=== PATIENT | male | born 1970 | race African-American/Black ===

== ENCOUNTER 2016-12-18 23:16 | Emergency (ER) | payer OTHER ==
[2016-12-19] MEDS ORDERED: SODIUM CHLORIDE 0.9% 1000 ML INFUS.BAG IV ONE (00:26)
[2016-12-19] MEDS ORDERED: KETOROLAC TROMETHAMINE 30 MG/1 ML VIAL IVPUSH ONE (00:26)
[2016-12-19] MEDS ORDERED: ONDANSETRON 4 MG/2 ML VIAL IVPUSH ONE (00:26)
[2016-12-19] MEDS ORDERED: FAMOTIDINE 20 MG/50 ML IVPB 50 ML IVPB ONE ×2 (00:26→00:41)
--- NOTE | 2016-12-19 00:32 | PDOC ---
History of Present Illness <Rossy Castelan - Last Filed: 12/19/16 06:40> - General History Source: Patient Exam Limitations: No Limitations - History of Present Illness Initial Comments: 12/19/16 00:23 Patient is a 46 year old with h/o cholecystectomy c/o generalized abd pain x 10 hours, states nausea, vomiting and diarrhea for same duration. Pain is 10/10 continuos, cramping, no alleviating, no aggravating factors. He is intolerant of solids and liquids,. Denies food contact, however had similar symptoms last year July which he thinks symptoms are the same as when he had food poisoning. PMDL Dr. Mcclellan PMHX; as above PSOCHX: neg etoh, drug, cig PFamHX: noncontributory ALL: PCN hives GENERAL/CONSTITUTIONAL: [No fever or chills. No weakness. No weight change.] HEAD, EYES, EARS, NOSE AND THROAT: [No change in vision. No ear pain or discharge. No sore throat.] CARDIOVASCULAR: [No chest pain or shortness of breath.] RESPIRATORY: [No cough, wheezing, or hemoptysis.] GASTROINTESTINAL: [No nausea, vomiting, diarrhea or constipation. No rectal bleeding.] GENITOURINARY: [No dysuria, frequency, or change in urination.] MUSCULOSKELETAL: [No joint or muscle swelling or pain. No neck or back pain.] SKIN AND BREASTS: [No rash or easy bruising.] NEUROLOGIC: [No headache, vertigo, loss of consciousness, or loss of sensation.] PSYCHIATRIC: [No depression or anxiety.] ENDOCRINE: [No increased thirst. No abnormal weight change.] HEMATOLOGIC/LYMPHATIC: [No anemia, easy bleeding, or history of blood clots.] ALLERGIC/IMMUNOLOGIC: [No hives or skin allergy. No latex allergy.] GENERAL: [The patient is awake, alert, and fully oriented, in moderate distress. ] HEAD: [Normal with no signs of trauma.] EYES: [Pupils equal, round and reactive to light, extraocular movements intact, sclera anicteric, conjunctiva clear.] ENT: [Ears normal, nares patent, oropharynx clear without exudates. Moist mucous membranes.] NECK: [Normal range of motion, supple without lymphadenopathy, JVD, or masses.] LUNGS: [Breath sounds equal, clear to auscultation bilaterally. No wheezes, and no crackles.] HEART: [Regular rate and rhythm, normal S1 and S2 without murmur, rub.] ABDOMEN: [Soft, (+) generalized tenderness, normoactive bowel sounds. No guarding, no rebound. No masses.] EXTREMITIES: [Normal range of motion, no edema. No clubbing or cyanosis. No cords, erythema, or tenderness.] NEUROLOGICAL: [Cranial nerves II through XII grossly intact. Normal speech, normal gait.] PSYCH: [Normal mood, normal affect.] SKIN: [Warm, Dry, normal turgor, no rashes or lesions noted.] <Kathryn Singh - Last Filed: 12/19/16 08:19> - General Stated Complaint: ABDOMINAL PAIN Time Seen by Provider: 12/19/16 00:15 Past History <Rossy Castelan - Last Filed: 12/19/16 06:40> - Past Medical History Cancer: No COPD: No Diabetes: No GI Disorders: No HTN: No Hypercholesterolemia: No - Surgical History Abdominal Surgery: Yes (HERNIA REPAIR) Cholecystectomy: Yes ('10) - Immunization History Immunization Up to Date: No - Psycho/Social/Smoking Cessation Hx Anxiety: No Suicidal Ideation: No Smoking History: Never smoked Have you smoked in the past 12 months: Yes Hx Alcohol Use: No Drug/Substance Use Hx: No Substance Use Type: Alcohol Hx Substance Use Treatment: No <Kathryn Singh - Last Filed: 12/19/16 08:19> - Past Medical History Allergies/Adverse Reactions: Allergies Allergy/AdvReac Type Severity Reaction Status Date / Time shellfish derived Allergy Intermediate Verified 12/19/16 00:48 venom-honey bee Allergy Intermediate Verified 12/19/16 00:48 [bee venom (honey bee)] Home Medications: Ambulatory Orders Amlodipine Besylate 5 mg PO DAILY 07/13/15 Tamsulosin HCl 0.4 mg PO DAILY 07/13/15 Losartan Potassium 100 mg PO DAILY 12/27/15 Mirabegron [Myrbetriq] 25 mg PO DAILY 12/27/15 Ondansetron [Ondansetron Odt] 8 mg PO TID #30 tab.rapdis 12/27/15 Dicyclomine HCl [Bentyl] 10 mg PO TID #12 capsule 12/19/16 Ondansetron HCl [Zofran] 4 mg PO QID #12 tablet 12/19/16 *Physical Exam - Vital Signs Last Vital Signs Temp Pulse Resp BP Pulse Ox 98.7 F 71 19 179/89 99 12/19/16 00:38 12/19/16 00:38 12/19/16 00:38 12/19/16 00:38 12/19/16 00:38 <Rossy Castelan - Last Filed: 12/19/16 06:40> ED Treatment Course - LABORATORY CBC & Chemistry Diagram: 12/19/16 01:01 12/19/16 01:01 - ADDITIONAL ORDERS Additional order review: Laboratory Results 12/19/16 12/19/16 01:21 01:01 Sodium 139 Potassium 4.3 Chloride 100 Carbon Dioxide 24 Anion Gap 15 BUN 12 Creatinine 1.3 Creat Clearance w eGFR 59.17 Random Glucose 129 H Calcium 9.7 Total Bilirubin 0.8 D AST 34 ALT 48 D Alkaline Phosphatase 86 Total Protein 8.1 Albumin 4.1 Lipase 88 Urine Color Straw Urine Appearance Clear Urine pH 7.0 Urine Protein Negative Urine Glucose (UA) Negative Urine Ketones Negative Urine Blood Negative Urine Nitrite Negative Urine Bilirubin Negative Urine Urobilinogen Negative Ur Leukocyte Esterase Negative 12/19/16 01:01 RBC 4.99 MCV 90.2 MCHC 33.6 RDW 12.8 MPV 8.4 Neutrophils % 93.5 H Lymphocytes % 3.6 L Monocytes % 2.4 L Eosinophils % 0.0 Basophils % 0.5 - RADIOLOGY Radiograph Interpretation: 12/19/16 06:40 Exam: Contrast-enhanced CT abdomen and pelvis Reviewed by Imaging rn chronic: Findings: The lung bases are clear. The patient is status post cholecystectomy. The upper abdominal viscera have an otherwise normal appearance. The adrenal glands are unremarkable. The kidneys have a normal appearance and enhance symmetrically. There is no evidence of urinary tract obstruction. The gastrointestinal tract does not appear obstructed. No thickened or dilated bowel is seen. The appendix is of normal appearance. There is no mesenteric infiltration. There is no free fluid. The bladder, prostate and seminal vessels are unremarkable. No abdominal or pelvic adenopathy is seen. No lytic or blastic destructive osseous lesions are seen. Impression: No inflammatory process identified in the abdomen or pelvis. No abdominal mass, adenopathy or collection seen. No explanation seen for this patient's abdominal pain. - Medications Given in the ED: ED Medications Discontinued Medications Generic Name Dose Route Start Last Admin Trade Name Aquilino PRN Reason Stop Dose Admin Famotidine/Sodium Chloride 50 mls @ 100 mls/hr 12/19/16 00:26 12/19/16 01:09 Pepcid 20 Mg Premixed Ivpb - IVPB 12/19/16 00:55 100 mls/hr ONCE ONE Administration Ketorolac Tromethamine 30 mg 12/19/16 00:26 12/19/16 01:09 Toradol Injection - IVPUSH 12/19/16 00:27 30 mg ONCE ONE Administration Morphine Sulfate 4 mg 12/19/16 04:09 12/19/16 04:20 Morphine Injection - IVPUSH 12/19/16 04:10 4 mg ONCE ONE Administration Ondansetron HCl 4 mg 12/19/16 00:26 12/19/16 01:09 Zofran Injection IVPUSH 12/19/16 00:27 4 mg ONCE ONE Administration Ondansetron HCl 4 mg 12/19/16 04:11 12/19/16 04:20 Zofran Injection IVPB 12/19/16 04:12 4 mg ONCE ONE Administration Sodium Chloride 2,000 ml 12/19/16 00:26 12/19/16 01:09 Normal Saline - IV 12/19/16 00:27 2,000 ml ONCE ONE Administration <Rossy Castelan - Last Filed: 12/19/16 06:40> - LABORATORY CBC & Chemistry Diagram: 12/19/16 01:01 12/19/16 01:01 <Kathryn Singh - Last Filed: 12/19/16 08:19> Medical Decision Making - Medical Decision Making Patient is a 46 year old with h/o cholecystectomy c/o generalized abd pain x 10 hours, states nausea, vomiting and diarrhea for same duration. 12/19/16 00:32 Patient is a 46 year old with h/o cholecystectomy c/o generalized abd pain x 10 hours, states nausea, vomiting and diarrhea for same duration, consistent with gastroenteritis. will get labs EKG, hyrdarte, toradol reassess EKG sinus rhythm 78, normal axis deviation, incomplete right bundle-branch block , T-wave inversion III and aVF unchanged from December 2015 12/19/16 06:32 labs show no acute findings however patient continued to have nausea and and epigastric pain. Will send for CT abdomen and pelvis with IV contrast. given morphine 4 mg IV and Zofran 4 mg IV continued on IV fluids 12/19/16 06:52 there are no findings on the CT scan. Patient currently feeling better and tolerating by mouth. Will dischargewith Rx for ZOFRAN. I discussed the physical exam findings, ancillary test results and final diagnoses with the patient. I answered all of the patient's questions. The patient was satisfied with the care received and felt comfortable with the discharge plan and treatment plan. The Patient agrees to follow up with the primary care physician within 24-72 hours. <Kathryn Singh - Last Filed: 12/19/16 08:19> *DC/Admit/Observation/Transfer <Rossy Castelan - Last Filed: 12/19/16 06:40> <Kathryn Singh - Last Filed: 12/19/16 08:19> Diagnosis at time of Disposition: Nausea vomiting and diarrhea, Gastroenteritis Abdominal pain Qualifiers: Abdominal location: generalized Qualified Code(s): R10.84 - Generalized abdominal pain - Discharge Dispostion Disposition: HOME Condition at time of disposition: Stable - Prescriptions Prescriptions: Dicyclomine HCl [Bentyl] 10 mg PO TID #12 capsule Ondansetron HCl [Zofran] 4 mg PO QID #12 tablet - Referrals Referrals: Matias Mcclellan MD [Primary Care Provider] - - Patient Instructions Printed Discharge Instructions: DI for Viral Gastroenteritis -- Adult Additional Instructions: Your Discharge Instructions: You must call primary care physician within 24 hours to arrange follow-up. Return to the Emergency Department with any new, persistent or worsening symptoms, for fever, chills, SOB, dizziness or any other concerning changes that may occur.
[2016-12-19] MEDS ORDERED: KETOROLAC TROMETHAMINE 30 MG/1 ML VIAL ONE (00:41)
[2016-12-19] MEDS ORDERED: ONDANSETRON 4 MG/2 ML VIAL ONE ×2 (00:41→04:20)
[2016-12-19 00:47] VITALS: BP 179/89; PULSE 71; TEMP 98.7; BMI 34.7
[2016-12-19 01:17] LABS: BASOPHIL 0.5 % (0-2.0); MCH 30.3 pg (25.7-33.7); MCHC 33.6 g/dl (32.0-35.9); MEAN CELL VOLUME 90.2 fl (80-96); MEAN PLT VOLUME 8.4 fl (7.5-11.1); NEUTROPHILS 93.5 % (42.8-82.8); PLATELET COUNT 276 K/MM3 (134-434); RDW 12.8 % (11.9-15.9); WHITE BLOOD COUNT 15.9 K/mm3 (4.0-10.0)
[2016-12-19 01:54] LABS: ALBUMIN 4.1 g/dl (3.4-5.0); BILIRUBIN,TOTAL 0.8 mg/dL (0.2-1.0); CALCIUM 9.7 mg/dL (8.5-10.1); COCKROFT - GAULT 105.91; CREATININE 1.3 mg/dL (0.7-1.3); TOT PROT 8.1 g/dl (6.4-8.2)
[2016-12-19] MEDS ORDERED: morphine CARPU-JECT 4 MG/1 ML DISP.SYRIN IVPUSH ONE (04:09)
[2016-12-19] MEDS ORDERED: ONDANSETRON 4 MG/2 ML VIAL IVPB ONE (04:11)
[2016-12-19 04:20] LABS: URINE APPEARANCE CLEAR; URINE BILIRUBIN NEGATIVE (NEGATIVE); URINE BLOOD NEGATIVE (NEGATIVE); URINE COLOR STRAW; URINE GLUCOSE (UA) NEGATIVE (NEGATIVE); URINE KETONE NEGATIVE (NEGATIVE); URINE LEUK ESTERASE NEGATIVE (NEGATIVE); URINE NITRITE NEGATIVE (NEGATIVE); URINE PROTEIN NEGATIVE (NEGATIVE); URINE UROBILINOGEN NEGATIVE E.U./dl (0.2-1.0)
[2016-12-19] MEDS ORDERED: morphine CARPU-JECT 4 MG/1 ML DISP.SYRIN ONE (04:20)
--- NOTE | 2016-12-19 13:30 | EKG ---
Test Reason : Blood Pressure : / mmHG Vent. Rate : 073 BPM Atrial Rate : 073 BPM P-R Int : 132 ms QRS Dur : 102 ms QT Int : 418 ms P-R-T Axes : 037 012 000 degrees QTc Int : 460 ms NORMAL SINUS RHYTHM INCOMPLETE RIGHT BUNDLE BRANCH BLOCK BORDERLINE ECG WHEN COMPARED WITH ECG OF 27-DEC-2015 15:33, INCOMPLETE RIGHT BUNDLE BRANCH BLOCK IS NOW PRESENT Confirmed by CANELO MCCORD MD ([id number]) on 12/19/2016 1:30:04 PM Referred By: Confirmed By:CANELO MCCORD MD
== END 2016-12-19 07:14 | disposition home or self-care (01) ==
LOC: JER 23:16
PROC: 3E033GC Introduction of Other Therapeutic Substance into Peripheral Vein, Percutaneous Approach (ICD-10-PCS; principal; 2016-12-18)
PROC: 3E0333Z Introduction of Anti-inflammatory into Peripheral Vein, Percutaneous Approach (ICD-10-PCS; 2016-12-18)
PROC: 3E033NZ Introduction of Analgesics, Hypnotics, Sedatives into Peripheral Vein, Percutaneous Approach (ICD-10-PCS; 2016-12-18)
PROC: 3E033GC Introduction of Other Therapeutic Substance into Peripheral Vein, Percutaneous Approach (ICD-10-PCS; 2016-12-18)
DX: K52.9 Noninfective gastroenteritis and colitis, unspecified (principal)
CPT/HCPCS: 36415; 74177-TC; 80053; 81003; 83690; 85025; 93005; 93010; 96365; 96375; 99282-25

== ENCOUNTER 2018-03-17 10:39 | Emergency (ER) | payer OTHER ==
[2018-03-17 10:44] VITALS: BP 141/90; PULSE 81; TEMP 98.3; BMI 34.0
[2018-03-17] MEDS ORDERED: KETOROLAC TROMETHAMINE 60 MG/2 ML VIAL IM ONE (11:19)
[2018-03-17] MEDS ORDERED: KETOROLAC TROMETHAMINE 60 MG/2 ML VIAL ONE (11:22)
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
== END 2018-03-17 11:57 | disposition home or self-care (01) ==
LOC: JERFT 10:39
PROC: 3E0233Z Introduction of Anti-inflammatory into Muscle, Percutaneous Approach (ICD-10-PCS; principal; 2018-03-17)
DX: S16.1XXA Strain of muscle, fascia and tendon at neck level, initial encounter (principal); V43.52XA Car driver injured in collision with other type car in traffic accident, initial encounter; Y93.89 Activity, other specified; Y92.410 Unspecified street and highway as the place of occurrence of the external cause; Z72.0 Tobacco use
CPT/HCPCS: 99281-25

== ENCOUNTER 2021-02-16 17:25 | Emergency (ER) | payer BC, OTHER ==
[2021-02-16 17:41] VITALS: TEMP 98.3; BMI 39.1
[2021-02-16 20:02] LABS: BASO % 1.8 % (0-2.0); EOS % 2.4 % (0-4.5); HEMATOCRIT 42.2 % (35.4-49); HEMOGLOBIN 14.3 GM/dL (11.7-16.9); LYMPH % 23.7 % (8-40); MCHC 33.9 g/dl (32.0-35.9); MEAN CELL VOLUME 88.3 fl (80-96); MEAN PLT VOLUME 8.1 fl (7.5-11.1); MONO % 8.8 % (3.8-10.2); NEUT % 63.3 % (42.8-82.8); PLATELET COUNT 261 10^3/uL (134-434); RBC 4.78 M/mm3 (4.00-5.60); RDW 13.5 % (11.9-15.9); WHITE BLOOD COUNT 8.9 K/mm3 (4.0-10.0)
[2021-02-16 20:20] LABS: CALCIUM 8.5 mg/dL (8.5-10.1)
[2021-02-16 20:21] LABS: ALBUMIN 3.6 g/dl (3.4-5.0); BLOOD UREA NITROGEN 15.4 mg/dL (7-18)
[2021-02-16 20:24] LABS: CREATININE 1.1 mg/dL (0.55-1.3)
[2021-02-16 20:25] LABS: BILIRUBIN,TOTAL 0.5 mg/dL (0.2-1)
[2021-02-16 20:28] LABS: N-TERMINAL BNP 36.1 pg/ml (5-125)
[2021-02-16] MEDS ORDERED: CLINDAMYCIN HCL 150 MG CAPSULE (FP) PO ONE (21:38)
[2021-02-16] MEDS ORDERED: CLINDAMYCIN HCL 150 MG CAPSULE (FP) ONE (21:58)
[2021-02-16 22:07] VITALS: BP 159/111; PULSE 79
== END 2021-02-16 22:11 | disposition home or self-care (01) ==
LOC: JER 17:25
DX: L03.115 Cellulitis of right lower limb (principal); L03.116 Cellulitis of left lower limb
CPT/HCPCS: 36415; 73590-TC-LT-FY; 73590-TC-RT-FY; 80053; 83880; 85025; 87040; 99284-25

== ENCOUNTER 2022-09-03 09:50 | Emergency (ER) | payer BC ==
[2022-09-03 10:02] VITALS: BP 120/71; PULSE 73; RESP 16; TEMP 97.8; BMI 34.7
[2022-09-03] MEDS ORDERED: ACETAMINOPHEN 325 MG TABLET (FP) PO ONE (12:42)
[2022-09-03] MEDS ORDERED: ACETAMINOPHEN 325 MG TABLET (FP) ONE (12:53)
[2022-09-03 14:26] LABS: PH,URINE 5.5 (5.0-8.0); URINE APPEARANCE CLEAR; URINE BILIRUBIN NEGATIVE (NEGATIVE); URINE COLOR YELLOW; URINE GLUCOSE (UA) 3+ (NEGATIVE); URINE KETONE NEGATIVE (NEGATIVE); URINE LEUK ESTERASE NEGATIVE (NEGATIVE); URINE NITRITE NEGATIVE (NEGATIVE); URINE PROTEIN NEGATIVE (NEGATIVE); URINE UROBILINOGEN 0.2 mg/dL (0.2-1.0)
== END 2022-09-03 14:58 | disposition home or self-care (01) ==
LOC: JER 09:50 → JERFT 09:50 → JER 14:58
DX: R59.0 Localized enlarged lymph nodes (principal)
CPT/HCPCS: 36415; 81003; 87086; 87491; 87591; 99283-25

== ENCOUNTER 2023-01-08 08:13 | Emergency (ER) | payer BC ==
[2023-01-08 08:17] VITALS: RESP 18; BMI 36.3
[2023-01-08] MEDS ORDERED: TETRACAINE 0.5% OPHTH SOLN 2 ML BOTTLE ONE (08:44)
[2023-01-08] MEDS ORDERED: ACETAMINOPHEN 500 MG TABLET (FP) PO ONE (08:57)
[2023-01-08] MEDS ORDERED: ACETAMINOPHEN 500 MG TABLET (FP) ONE (09:13)
[2023-01-08 11:08] VITALS: BP 143/86; PULSE 73; TEMP 97.8
== END 2023-01-08 11:12 | disposition home or self-care (01) ==
LOC: JER 08:13
DX: G44.209 Tension-type headache, unspecified, not intractable (principal)
CPT/HCPCS: 70450-TC; 82962; 99284-25

== ENCOUNTER 2023-01-15 06:39 | Emergency (ER) | payer BC ==
[2023-01-15 06:51] VITALS: TEMP 98.6; BMI 35.7
[2023-01-15] MEDS ORDERED: DEXAMETHASONE SOD PHOSPHATE 10 MG/1 ML VIAL IM ONE (07:36)
[2023-01-15] MEDS ORDERED: DEXAMETHASONE SOD PHOSPHATE 10 MG/1 ML VIAL ONE (07:42)
[2023-01-15 08:09] LABS: PH,URINE 5.5 (5.0-8.0); URINE APPEARANCE CLEAR; URINE BILIRUBIN NEGATIVE (NEGATIVE); URINE COLOR YELLOW; URINE GLUCOSE (UA) NEGATIVE (NEGATIVE); URINE KETONE TRACE (NEGATIVE); URINE LEUK ESTERASE NEGATIVE (NEGATIVE); URINE NITRITE NEGATIVE (NEGATIVE); URINE PROTEIN NEGATIVE (NEGATIVE); URINE UROBILINOGEN 0.2 mg/dL (0.2-1.0)
[2023-01-15 08:24] LABS: THROAT:GRP A STREP NOT DETECTED (NOTDETECTED)
[2023-01-15 08:43] VITALS: BP 159/80; PULSE 90; RESP 20
== END 2023-01-15 08:43 | disposition home or self-care (01) ==
LOC: JER 06:39
PROC: 3E023GC Introduction of Other Therapeutic Substance into Muscle, Percutaneous Approach (ICD-10-PCS; principal; 2023-01-15)
DX: N39.9 Disorder of urinary system, unspecified (principal); R09.81 Nasal congestion; K59.00 Constipation, unspecified; R35.0 Frequency of micturition; J01.90 Acute sinusitis, unspecified; R33.9 Retention of urine, unspecified; Z20.822 Contact with and (suspected) exposure to COVID-19
CPT/HCPCS: 0241U-QW; 81003; 87070; 87086; 87651; 99284-25; J1100

== ENCOUNTER 2023-01-22 16:38 | Emergency (ER) | payer BC ==
[2023-01-22 16:42] VITALS: PULSE 88; RESP 18; TEMP 99.7; BMI 35.1
[2023-01-22] MEDS ORDERED: FLUORESCEIN NA 1 EA STRIP OS ONE (17:30)
[2023-01-22] MEDS ORDERED: TETRACAINE 0.5% HCL 0.6ML DROPPER.BOTTLE OS ONE (17:30)
[2023-01-22] MEDS ORDERED: FLUORESCEIN NA 1 EA STRIP ONE (17:32)
[2023-01-22] MEDS ORDERED: TETRACAINE 0.5% OPHTH SOLN 2 ML BOTTLE ONE (17:33)
[2023-01-22 18:09] VITALS: BP 135/106
== END 2023-01-22 18:15 | disposition home or self-care (01) ==
LOC: JER 16:38
DX: H04.129 Dry eye syndrome of unspecified lacrimal gland (principal); H55.00 Unspecified nystagmus; H57.12 Ocular pain, left eye
CPT/HCPCS: 99283-25

== ENCOUNTER 2023-01-24 18:25 | Emergency (ER) | payer BC ==
[2023-01-24] MEDS ORDERED: SODIUM CHLORIDE 1,000 ML IV SCH ×2 (18:30→20:10)
[2023-01-24 18:38] VITALS: RESP 20; BMI 34.8
[2023-01-24 18:55] VITALS: TEMP 99.9
[2023-01-24 19:20] LABS: BASO % 0.3 % (0-2.0); EOS % 0.4 % (0-4.5); HEMATOCRIT 48.3 % (35.4-49); HEMOGLOBIN 16.2 GM/dL (11.7-16.9); LYMPH % 12.5 % (8-40); MCHC 33.5 g/dl (32.0-35.9); MEAN CELL VOLUME 86.4 fl (80-96); MEAN PLT VOLUME 8.4 fl (7.5-11.1); MONO % 5.9 % (3.8-10.2); NEUT % 80.9 % (42.8-82.8); PLATELET COUNT 221 10^3/uL (134-434); RBC 5.59 M/mm3 (4.00-5.60); RDW 14.7 % (11.9-15.9); WHITE BLOOD COUNT 13.2 K/mm3 (4.0-10.0)
[2023-01-24 19:26] LABS: PROTHROMBIN TIME (PATIENT) 11.6 SEC (9.7-13.0)
[2023-01-24 19:29] LABS: ACTIVATED PTT 28.9 SECONDS (25.2-36.5)
[2023-01-24 19:36] VITALS: BP 187/87
[2023-01-24 19:48] LABS: CHLORIDE 107 mmol/L (98-107); SODIUM 144 mmol/L (136-145)
[2023-01-24 19:50] LABS: CALCIUM 9.3 mg/dL (8.5-10.1)
[2023-01-24 19:51] LABS: ANION GAP 12 MMOL/L (8-16); BLOOD UREA NITROGEN 19.9 mg/dL (7-18); CO2 25 mmol/L (21-32)
[2023-01-24 19:52] LABS: GLUCOSE,RANDOM 145 mg/dL (74-106)
[2023-01-24 19:54] LABS: CREATININE 1.5 mg/dL (0.55-1.3); SGOT/AST 34 U/L (15-37); SGPT/ALT 56 U/L (13-61)
[2023-01-24 19:55] LABS: CHOLESTEROL 187 mg/dL (50-200)
[2023-01-24 19:56] LABS: TOT PROT 7.8 g/dl (6.4-8.2)
[2023-01-24 19:57] LABS: BILIRUBIN,TOTAL 0.4 mg/dL (0.2-1); LDL CHOLESTEROL (ONLY SJRH) 118 mg/dL (5-100)
[2023-01-24 19:58] LABS: ALK PHOS 104 U/L (45-117); HDL CHOLESTEROL 52 mg/dL (40-60)
[2023-01-24] MEDS ORDERED: LOSARTAN POTASSIUM 50 MG TABLET PO ONE (20:11)
[2023-01-24] MEDS ORDERED: LOSARTAN POTASSIUM 50 MG TABLET ONE (20:17)
[2023-01-24 21:14] LABS: EPI CELLS 3 /uL (0-25.1); HYALINE CASTS 0 /uL (0-3.1); PH,URINE 5.5 (5.0-8.0); URINE APPEARANCE CLEAR; URINE BACTERIA 2 /uL (0-1359); URINE BILIRUBIN NEGATIVE (NEGATIVE); URINE COLOR YELLOW; URINE GLUCOSE (UA) NEGATIVE (NEGATIVE); URINE KETONE TRACE (NEGATIVE); URINE LEUK ESTERASE NEGATIVE (NEGATIVE); URINE NITRITE NEGATIVE (NEGATIVE); URINE PROTEIN 1+ (NEGATIVE); URINE RBC 11 /uL (0-23.9); URINE UROBILINOGEN 0.2 mg/dL (0.2-1.0); URINE WBC 5 /uL (0-25.8)
[2023-01-24 21:21] VITALS: PULSE 98
[2023-01-24 21:56] LABS: URINE BARBITURATES NEGATIVE (NEGATIVE)
[2023-01-24 21:57] LABS: COCAINE, UR NEGATIVE (NEGATIVE); METHADONE, UR NEGATIVE (NEGATIVE); OPIATES, URI NEGATIVE (NEGATIVE); URINE AMPHETAMINES NEGATIVE (NEGATIVE)
[2023-01-24 21:58] LABS: PHENCYCLIDINE,URINE POSITIVE (NEGATIVE); URINE BENZODIAZEPINES NEGATIVE (NEGATIVE)
== END 2023-01-24 21:26 | disposition home or self-care (01) ==
LOC: JER 18:25
DX: R41.82 Altered mental status, unspecified (principal); I10 Essential (primary) hypertension; F16.10 Hallucinogen abuse, uncomplicated
CPT/HCPCS: 36415; 70450-TC; 71045-TC-FY; 80053; 80061; 80307; 81003; 82550; 82553; 83036; 84484; 85025; 85610; 85730; 93005; 93010; 99285-25

== ENCOUNTER 2023-01-31 02:05 | Emergency (ER) | payer BC ==
[2023-01-31 02:13] VITALS: BP 168/119; PULSE 96; RESP 20; TEMP 98.2; BMI 34.5
[2023-01-31] MEDS ORDERED: LIDOCAINE HCL 2% (20ML MULTI-DOSE VIAL) ONE (02:52)
[2023-01-31] MEDS ORDERED: DIPHTH,PERTUSS(ACELL),TET 0.5 ML DISP.SYRIN IM ONE ×2 (02:55→03:12)
== END 2023-01-31 03:15 | disposition home or self-care (01) ==
LOC: JER 02:05
PROC: 0HQ0XZZ Repair Scalp Skin, External Approach (ICD-10-PCS; principal; 2023-01-31)
PROC: 3E0234Z Introduction of Serum, Toxoid and Vaccine into Muscle, Percutaneous Approach (ICD-10-PCS; 2023-01-31)
DX: S01.01XA Laceration without foreign body of scalp, initial encounter (principal); W22.8XXA Striking against or struck by other objects, initial encounter
CPT/HCPCS: 70450-TC; 72125-TC; 90715; 99284-25

== ENCOUNTER 2023-02-07 08:56 | Emergency (ER) | payer BC ==
[2023-02-07 09:02] VITALS: BP 167/95; PULSE 72; RESP 18; TEMP 97; BMI 34.5
== END 2023-02-07 09:21 | disposition home or self-care (01) ==
LOC: JERFT 08:56 → JER 08:56 → JERFT 09:21
DX: Z48.02 Encounter for removal of sutures (principal)
CPT/HCPCS: 99281-25

== ENCOUNTER 2023-02-12 11:14 | Emergency (ER) | payer OTHER, BC ==
[2023-02-12 11:23] VITALS: BP 135/81; PULSE 97; RESP 18; TEMP 98.9; BMI 34.5
[2023-02-12] MEDS ORDERED: IBUPROFEN 600 MG TABLET (FP) PO ONE ×2 (12:03→12:06)
[2023-02-12] MEDS ORDERED: LIDOCAINE 5% TOPICAL PATCH TP ONE (12:03)
[2023-02-12] MEDS ORDERED: LIDOCAINE 5% TOPICAL PATCH ONE (12:06)
[2023-02-12] MEDS ORDERED: ACETAMINOPHEN 500 MG TABLET (FP) PO ONE (12:08)
[2023-02-12] MEDS ORDERED: ACETAMINOPHEN 500 MG TABLET (FP) ONE (12:09)
[2023-02-12] MEDS ORDERED: LIDOCAINE PATCH REMOVAL MC SCH (22:00)
== END 2023-02-12 13:39 | disposition home or self-care (01) ==
LOC: JERFT 11:14
DX: M79.641 Pain in right hand (principal); R22.31 Localized swelling, mass and lump, right upper limb; V89.2XXA Person injured in unspecified motor-vehicle accident, traffic, initial encounter
CPT/HCPCS: 70450-TC; 73130-TC-RT-FY; 99284-25

== ENCOUNTER 2023-02-13 13:50 | Emergency (ER) | payer BC, OTHER ==
[2023-02-13 14:15] VITALS: BP 155/100; PULSE 100; RESP 18; TEMP 98; BMI 34.5
== END 2023-02-13 14:50 | disposition left against medical advice (07) ==
LOC: JER 13:50
DX: Z53.21 Procedure and treatment not carried out due to patient leaving prior to being seen by health care provider (principal)
CPT/HCPCS: 99283-25

== ENCOUNTER 2023-02-14 05:08 | Emergency (ER) | payer BC ==
[2023-02-14 05:21] VITALS: BP 150/98; PULSE 89; RESP 18; TEMP 98.5; BMI 34.5
== END 2023-02-14 06:42 | disposition left against medical advice (07) ==
LOC: JER 05:08
DX: K59.00 Constipation, unspecified (principal)
CPT/HCPCS: 99281-25

== ENCOUNTER 2023-06-02 12:52 | Emergency (ER) | payer BC ==
[2023-06-02 13:04] VITALS: BP 167/100; PULSE 90; RESP 18; TEMP 99.1; BMI 43.1
== END 2023-06-02 14:40 | disposition home or self-care (01) ==
LOC: JERFT 12:52
DX: Z48.02 Encounter for removal of sutures (principal)
CPT/HCPCS: 99282-25